=== PATIENT | male | born 1950 | race African-American/Black ===

== ENCOUNTER 2022-10-27 13:26 | Inpatient (IN) | payer MEDICARE, MEDICAID ==
[~2022-10-27 13:26] MED LIST: Iopamidol 300 61% 100 ML VIAL FS ONE
[2022-10-27 14:15] LABS: #Eosinphils 0.1 10x3/uL (0.0-0.5); #Monocytes 0.5 10x3/uL (0.0-1.1); #Neutrophils 4.3 10x3/uL (1.5-8.4); %Basophils 0.3 % (0.0-2.0); %Eosinophils 1.9 % (0.0-6.0); %Lymphocytes 21.5 % (18.0-47.0); %Monocytes 7.9 % (0.0-10.0); %Neutrophils 68.2 % (40.0-75.0); Hemoglobin 13.6 g/dL (13.5-17.5); Mean Corpuscular HGB CONC 33.3 g/dL (32.0-36.0); Mean Corpuscular Hemoglobin 29.9 pg (27.0-33.0); Mean Corpuscular Volume 89.9 fl (81.2-95.1); Mean Platelet Volume 8.9 fl (7.4-10.4); Platelet Count 294 10x3/uL (150-450); RBC Distribution Width 13.5 % (11.5-14.5); Red Blood Cell (RBC) Count 4.55 10x6/uL (4.32-5.72); White Blood Cell (WBC) Count 6.3 10x3/uL (3.5-10.5)
[2022-10-27 14:30] LABS: ALT (SGPT) 13 U/L (8-55); AST (SGOT) 13 U/L (5-34); Acetaminophen Less than 10.0 mcg/mL (10.0-30.0); Albumin 3.4 g/dL (3.4-4.8); Alcohol Less than 10 mg/dL (Less than 10); Alkaline Phosphatase 55 U/L (40-110); Anion Gap 12 mmol/L (10-20); BUN (Urea Nitrogen) 23 mg/dL (8.4-25.7); Bilirubin, Total 0.5 mg/dL (0.2-1.2); Calc. Creatinine Clearance 0 mL/min (70-130); Calcium 8.5 mg/dL (7.8-10.44); Carbon Dioxide 21 mmol/L (23-31); Chloride 111 mmol/L (98-107); Estimated GFR 98; Globulin 2.6 g/dL (2.4-3.5); Glucose 98 mg/dL (83-110); Potassium 3.8 mmol/L (3.5-5.1); Salicylate Less than 8.0 mg/dL (15.0-30.0); Sodium 140 mmol/L (136-145)
[2022-10-27 14:34] LABS: Troponin I Less than 0.010 ng/mL (< 0.028)
[2022-10-27 14:40] LABS: Bilirubin Neg (Negative); Blood, Urine 150 (Negative); Clarity Slightly Cloudy (Clear); Glucose, Urine (Dipstick) Normal (Negative); Ketone, Urine Negative (Negative); Leukocyte 500 (Negative); Nitrite Positive (Negative); Protein, Urine (Dipstick) 30 mg/dl (Neg-Trace); Urobilinogen Normal mg/dL (Less than 2)
[2022-10-27 14:47] LABS: Amphetamine Not Detected (NotDetected); Barbiturates Screen Not Detected (NotDetected); Benzodiazepine Screen Not Detected (NotDetected); Cocaine Metabolite Screen Not Detected (NotDetected); Methadone Not Detected (NotDetected); Methamphetamine Not Detected (NotDetected); Opiate Screen Not Detected (NotDetected); Oxycodone Screen Not Detected (NotDetected); Phencyclidine (PCP) Not Detected (NotDetected); THC/Cannabinoid Screen Not Detected (NotDetected); Tricyclic Screen Not Detected (NotDetected)
[2022-10-27 14:59] LABS: Bacteria/HPF 2+ HPF (None Seen); Squamous Epithelial 0-3 HPF (0-3); WBC/HPF Greater than 50 HPF (0-3)
[2022-10-27] MEDS ORDERED: HYDROcodone/Acetaminophen 5/325 mg Tablet PO PRN (16:53)
[2022-10-27] MEDS ORDERED: Ondansetron PF 4 MG/2 ML Vial IVP PRN (16:53)
[2022-10-27] MEDS ORDERED: Acetaminophen 325 MG TAB PO PRN (16:53)
[2022-10-27] MEDS ORDERED: Sodium Chloride 0.9% 1,000 ML IV SCH (17:00)
[2022-10-27] MEDS ORDERED: cefTRIAXone\\ROCEPHIN 1 GM in Sodium Chloride 0.9% 100 ML IVPB SCH (17:00)
[2022-10-27] MEDS ORDERED: Atorvastatin Calcium 40 MG TAB ONE (21:59)
[2022-10-27] MEDS ORDERED: Famotidine/PF 20 mg/2ml Vial ONE (22:10)
[2022-10-27] MEDS: Famotidine/PF 20 mg/2ml Vial SLOW IVP SCH (22:40)
[2022-10-28] MEDS: Atorvastatin Calcium 40 MG TAB PO SCH ×2 (00:09→19:45)
[2022-10-28] MEDS ORDERED: hydrALAZINE 20 MG/ML VIAL SLOW IVP PRN ×2 (04:15→04:19)
[2022-10-28] MEDS ORDERED: hydrALAZINE 20 MG/ML VIAL ONE (04:29)
[2022-10-28 04:30] LABS: #Eosinphils 0.2 10x3/uL (0.0-0.5); #Monocytes 0.7 10x3/uL (0.0-1.1); %Basophils 0.3 % (0.0-2.0); %Eosinophils 3.1 % (0.0-6.0); %Lymphocytes 28.3 % (18.0-47.0); %Monocytes 9.9 % (0.0-10.0); %Neutrophils 58.1 % (40.0-75.0); Hemoglobin 13.3 g/dL (13.5-17.5); Mean Corpuscular HGB CONC 32.8 g/dL (32.0-36.0); Mean Corpuscular Hemoglobin 29.6 pg (27.0-33.0); Mean Platelet Volume 9.2 fl (7.4-10.4); Platelet Count 284 10x3/uL (150-450); RBC Distribution Width 13.6 % (11.5-14.5); White Blood Cell (WBC) Count 6.8 10x3/uL (3.5-10.5)
[2022-10-28 04:31] LABS: Anion Gap 14 mmol/L (10-20); BUN (Urea Nitrogen) 19 mg/dL (8.4-25.7); Calc. Creatinine Clearance 0 mL/min (70-130); Calcium 8.7 mg/dL (7.8-10.44); Carbon Dioxide 20 mmol/L (23-31); Cardiac Risk 4.6 (Less than 4.5); Chloride 114 mmol/L (98-107); Cholesterol 188 mg/dl (< 200 Desired); Estimated GFR 100; Glucose 78 mg/dL (83-110); HDL Cholesterol 41 mg/dL (>60 Neg Risk); LDL Cholesterol, Calculated 135 mg/dL; Sodium 144 mmol/L (136-145); Triglycerides 62 mg/dL (Less than 150)
[2022-10-28 05:24] LABS: SARS-CoV-2 NAA Rapid Test Not Detected (NotDetected)
[2022-10-28] MEDS ORDERED: Famotidine 20 MG TAB ONE (08:44)
[2022-10-28] MEDS ORDERED: Aspirin 325 mg Enteric Coated Tablet ONE (08:44)
[2022-10-28] MEDS ORDERED: Famotidine/PF 20 mg/2ml Vial ONE (08:55)
[2022-10-28] MEDS ORDERED: Aspirin 81 mg Enteric Coated Tablet ONE (09:51)
[2022-10-28] MEDS: Aspirin 81 mg Enteric Coated Tablet PO SCH (09:54)
[2022-10-28] MEDS: Famotidine/PF 20 mg/2ml Vial SLOW IVP SCH ×2 (09:55→19:45)
[2022-10-28 12:49] VITALS: BMI 22.8
[2022-10-28] MEDS: cefTRIAXone\\ROCEPHIN 1 GM in Sodium Chloride 0.9% 100 ML IVPB SCH (17:11)
[2022-10-29] MEDS: Lisinopril 20 MG TAB PO SCH (08:50)
[2022-10-29] MEDS: Hydrochlorothiazide 25 MG TAB PO SCH (08:50)
[2022-10-29] MEDS: Famotidine/PF 20 mg/2ml Vial SLOW IVP SCH ×2 (08:50→22:02)
[2022-10-29] MEDS: Aspirin 81 mg Enteric Coated Tablet PO SCH (08:50)
[2022-10-29] MEDS: Amlodipine 5 MG TAB PO SCH (08:51)
[2022-10-29] MEDS ORDERED: Lisinopril/Hydrochlorothiazide 20 mg/12.5 mg Tablet PO SCH (09:00)
[2022-10-29] MEDS: cefTRIAXone\\ROCEPHIN 1 GM in Sodium Chloride 0.9% 100 ML IVPB SCH (15:41)
[2022-10-29] MEDS: Atorvastatin Calcium 40 MG TAB PO SCH (22:02)
[2022-10-30 07:13] VITALS: TEMP 97.7
[2022-10-30] MEDS: Famotidine/PF 20 mg/2ml Vial SLOW IVP SCH (08:23)
[2022-10-30] MEDS: Lisinopril 20 MG TAB PO SCH (08:24)
[2022-10-30] MEDS: Hydrochlorothiazide 25 MG TAB PO SCH (08:24)
[2022-10-30] MEDS: Amlodipine 5 MG TAB PO SCH (08:24)
[2022-10-30] MEDS: Aspirin 81 mg Enteric Coated Tablet PO SCH (08:24)
[2022-10-30 08:25] VITALS: BP 172/73
== END 2022-10-30 11:51 | disposition home or self-care (01) | DRG 64 ==
LOC: CSHERS 13:26 → CSHERHOLD 20:41 → CSHTELE 10-28 12:05
PROVIDERS: ADMIT Family Medicine; ATTEND Family Medicine
DX: I63.9 Cerebral infarction, unspecified (principal); G93.41 Metabolic encephalopathy; N39.0 Urinary tract infection, site not specified; E78.5 Hyperlipidemia, unspecified; I10 Essential (primary) hypertension; F17.210 Nicotine dependence, cigarettes, uncomplicated; E78.00 Pure hypercholesterolemia, unspecified; Z20.822 Contact with and (suspected) exposure to COVID-19; Z79.82 Long term (current) use of aspirin; Z79.01 Long term (current) use of anticoagulants; Z79.899 Other long term (current) drug therapy; Z89.612 Acquired absence of left leg above knee; Z98.890 Other specified postprocedural states
CPT/HCPCS: 0042T; 36415; 36416; 70450; 70551; 80048; 80053; 80061; 80306; 80307; 81003; 81015; 84484; 85025; 87040; 87077; 87086; 87186; 93005; J0360; J0696; J3490; J7050; Q9967; S0028; U0002